=== PATIENT | male | born 1970 | race Two or more races ===

== ENCOUNTER 2016-12-25 17:21 | Emergency (ER) | payer BC ==
[2016-12-25] MEDS ORDERED: diPHENhydraMINE IV* 50 MG/ML 1 ml VIAL (BENADRYL) IV ONE (17:34)
[2016-12-25] MEDS ORDERED: methylPREDNISolone SOD SUCC* 125 MG 2 ML VIAL IV ONE (17:34)
[2016-12-25] MEDS ORDERED: Famotidine IV* 10 MG/ML 2 ML (20 mg) IV ONE (17:34)
[2016-12-25 19:02] VITALS: BP 125/69
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
== END 2016-12-25 19:17 | disposition home or self-care (01) ==
LOC: ED 17:21
DX: T78.40XA Allergy, unspecified, initial encounter (principal); R06.02 Shortness of breath; R21 Rash and other nonspecific skin eruption; X58.XXXA Exposure to other specified factors, initial encounter; R11.2 Nausea with vomiting, unspecified
CPT/HCPCS: 96374; 96375; 99284; J1200; J2930

== ENCOUNTER 2017-12-25 07:38 | Day surgery (SDC) | payer BC ==
[~2017-12-25 07:38] MED LIST: Buffered Lidocaine 0.9% SYRIN* 5 ML/SYR SYRINGE INTRADERM ONE; Dexamethasone IV* 4 MG/ML 1 ML (4 MG) IV SLOW PU ONE; Famotidine TAB* 20 MG PO ONE
[2017-12-25] MEDS ORDERED: Dexamethasone IV* 4 MG/ML 1 ML (4 MG) ONE (07:59)
[2017-12-25] MEDS ORDERED: ceFAZolin 2 GM PREMIX (*) 2 GM/50 ML BAG IVPB ONE (08:00)
[2017-12-25] MEDS ORDERED: Famotidine TAB* 20 MG ONE (08:00)
[2017-12-25] MEDS ORDERED: Buffered Lidocaine 0.9% SYRIN* 5 ML/SYR SYRINGE ONE (08:00)
[2017-12-25] MEDS ORDERED: Bupivacaine 0.5%* 50 ML VIAL ONE (08:05)
[2017-12-25] MEDS ORDERED: Lidocaine 1% MPF wEPI 200,000* 30 ML SDV ONE (08:05)
[2017-12-25] MEDS ORDERED: Midazolam* 1 MG/ML 5 ML VIAL (5 MG) ONE (08:28)
[2017-12-25] MEDS ORDERED: fentaNYL* 50 MCG/ML 2 ML VIAL (100 MCG VIAL) ONE (08:28)
[2017-12-25] MEDS ORDERED: Ketorolac INJ* 30 MG/ML 1 ML VIAL IV PRN (08:41)
[2017-12-25] MEDS ORDERED: DiMENhydriNATE IV* 50 MG/ML VIAL IV PUSH PRN (08:41)
[2017-12-25] MEDS ORDERED: oxyCODONE/Acetamin 5/325 MG* TAB PO PRN (08:41)
[2017-12-25] MEDS ORDERED: HYDROcodone/ACETAMIN 5-325 MG* 1 TAB PO PRN ×3 (08:41→10:16)
[2017-12-25] MEDS ORDERED: fentaNYL* 50 MCG/ML 2 ML VIAL (100 MCG VIAL) IV PRN (08:41)
[2017-12-25] MEDS ORDERED: Naloxone* 0.4 MG/ML 1 ML VIAL IV PRN (08:41)
[2017-12-25] MEDS ORDERED: Propofol* 10 MG/ML 20 ML BTL IV PUSH ONE ×2 (08:45→09:33)
[2017-12-25] MEDS ORDERED: Lidocaine 2% PF * 5 ML VIAL ONE (08:45)
[2017-12-25] MEDS ORDERED: Ibuprofen TAB* 600 MG PO PRN (10:15)
--- NOTE | 2017-12-25 10:15 | BRIEFOPN ---
Brief Operative Note - Surgery Procedures: Procedures OTHER LOCAL DESTRUC SKIN (06/02/03) 12/25/17 Op NOte Pre-op dx: umbilical hernia Post-op dx: same Procedure: open repair of umbilical hernia Surgeon: Zachariah Asst: none Anesth: local-MAC EBL: 5 cc SCDs on during surgery Abx: given pre-op Pt. tolerated procedure well and was transferred to in a stable condition. CLFoster
[2017-12-25] MEDS ORDERED: Ketorolac INJ* 30 MG/ML 1 ML VIAL ONE (10:35)
[2017-12-25 10:47] VITALS: BP 133/81
--- NOTE | 2017-12-26 03:09 | OP ---
CC: Dr. Yordan Jung * DATE OF OPERATION: 12/25/17 - SDS DATE OF : 70 SURGEON: Anuja Soni MD GENERATOR REBUILDER: There was no medical assistant dermatology for this case. PRE-OP DIAGNOSIS: Umbilical hernia. POST-OP DIAGNOSIS: Umbilical hernia. OPERATIVE PROCEDURE: Open repair of umbilical hernia. INDICATIONS: Mr. Moyer is a 47-year-old male who presented to the office with symptomatic umbilical hernia prompting the plan for surgical intervention. DESCRIPTION OF PROCEDURE: He was brought to the operating room, placed on the OR table in supine position and given IV sedation. The abdomen was prepped and draped in the usual sterile fashion. After infiltrating with local anesthetic, an incision was made in the infraumbilical area and subcutaneous tissue was divided bluntly down to the level of the fascia. The umbilicus was then encircled with blunt dissection and a Nadir drain was brought around the umbilical stalk. Dissection of the hernia from the umbilical stalk was undertaken with a combination of sharp and blunt dissection. Once this was done and the umbilical stalk was freed from the hernia, the hernia was reduced. The abdominal wall defect was noted to be about 1 cm to 1.5 cm in diameter, so the decision was made to proceed with primary closure. This was done by grasping the corners of the defect with Mónica clamps and then 0 Vicryl stitches were used to close the defect. The umbilical stalk was tacked down to the fascia using 2-0 Vicryl stitch and then subcutaneous tissue was closed with 2-0 Vicryl and the skin was closed with 4-0 Prolene in a subcuticular fashion. Steri-Strips and a dry sterile dressing were applied. All sponge and instrument counts were correct. The patient tolerated the procedure well and was transferred to recovery in a stable condition. [id number]/CPS #: [id number] MTDD
== END 2017-12-25 11:11 | disposition home or self-care (01) ==
LOC: OR 07:38
PROVIDERS: ATTEND Surgery
DX: K42.9 Umbilical hernia without obstruction or gangrene (principal)
CPT/HCPCS: A9270-GY; J0690; J1100; J1885; J2001; J2250; J2704; J3010